=== PATIENT | female | born 1990 | race Caucasian/White ===

== ENCOUNTER 2022-11-20 08:38 | Emergency (ER) | payer BC ==
[2022-11-20] MEDS ORDERED: diphenhydrAMINE 50 MG/ML VIAL ONE (09:53)
[2022-11-20] MEDS ORDERED: Metoclopramide HCl 10 MG/2 ML VIAL ONE (09:54)
[2022-11-20] MEDS ORDERED: Ketorolac Tromethamine 30 MG/ML VIAL ONE (09:54)
[2022-11-20] MEDS ORDERED: Dexamethasone 10 MG/ML VIAL ONE (12:18)
== END 2022-11-20 12:30 | disposition home or self-care (01) ==
LOC: CSHERS 08:38
DX: G43.909 Migraine, unspecified, not intractable, without status migrainosus (principal)
CPT/HCPCS: 96374; 96375; J1100; J1200; J1885; J2765

== ENCOUNTER 2022-11-21 12:26 | Emergency (ER) | payer BC ==
[2022-11-21 13:59] LABS: Pregnancy Test - Urine (BHCG) Negative (Negative); Pregu Control Background? CLEAR/WHITE (CLR/WHITE); Pregu Control Bar Appear? YES (CONTROL BAR); Specific Gravity 1.015 (1.002-1.036)
[2022-11-21 14:09] LABS: #Monocytes 0.8 10x3/uL (0.0-1.1); %Basophils 0.2 % (0.0-2.0); %Eosinophils 0.2 % (0.0-6.0); %Lymphocytes 13.7 % (18.0-47.0); %Monocytes 5.4 % (0.0-10.0); Hematocrit 34.4 % (34.9-44.5); Mean Corpuscular HGB CONC 34.9 g/dL (32.0-36.0); Mean Corpuscular Hemoglobin 30.3 pg (27.0-33.0); Mean Corpuscular Volume 86.9 fl (81.6-98.3); Mean Platelet Volume 11.8 fl (7.4-10.4); Platelet Count 260 10x3/uL (150-450); RBC Distribution Width 12.1 % (11.5-14.5); Red Blood Cell (RBC) Count 3.96 10x6/uL (3.90-5.03)
[2022-11-21 14:19] LABS: ALT (SGPT) 43 U/L (8-55); AST (SGOT) 19 U/L (5-34); Albumin 4.1 g/dL (3.5-5.0); Alkaline Phosphatase 55 U/L (40-110); Anion Gap 11 mmol/L (10-20); BUN (Urea Nitrogen) 10 mg/dL (7.0-18.7); Bilirubin, Total 0.4 mg/dL (0.2-1.2); Calc. Creatinine Clearance 0 mL/min (70-130); Carbon Dioxide 24 mmol/L (22-29); Chloride 108 mmol/L (98-107); Estimated GFR 103; Globulin 2.6 g/dL (2.4-3.5); Glucose 104 mg/dL (70-105); Potassium 4.1 mmol/L (3.5-5.1); Protein, Total 6.7 g/dL (6.0-8.3); Sodium 139 mmol/L (136-145)
[2022-11-21] MEDS ORDERED: Prochlorperazine 10 MG/2 ML VIAL ONE (14:37)
[2022-11-21] MEDS ORDERED: diphenhydrAMINE 50 MG/ML VIAL ONE (14:37)
[2022-11-21] MEDS ORDERED: Ketorolac Tromethamine 30 MG/ML VIAL ONE (14:37)
[2022-11-21] MEDS ORDERED: methylPREDNISolone Sod Succ/PF 125 MG/2 ML VIAL ONE (15:18)
[2022-11-21] MEDS ORDERED: Magnesium 2 GM/50 ML BAG (IN WATER) ONE (15:18)
== END 2022-11-21 16:09 | disposition home or self-care (01) ==
LOC: CSHERS 12:26
DX: G43.909 Migraine, unspecified, not intractable, without status migrainosus (principal)
CPT/HCPCS: 36415; 70450; 80053; 81025; 83605; 85025; 86140; 87040; 96365; 96366; 96367; 96375; J0780; J1200; J1885; J2930; J3475